=== PATIENT | female | born 1995 | race Caucasian/White ===

== ENCOUNTER 2017-11-15 17:45 | Inpatient (IN) | payer OTHER ==
[2017-11-15] MEDS ORDERED: Betamethasone Soluspan 30 mg/5mL Inj Susp IM SCH (19:00)
[2017-11-15] MEDS ORDERED: Lactated Ringer's 1,000 ML IV SCH (19:00)
[2017-11-15 19:09] LABS: BASO % 0.2 % (0.0-2.0); EOS # 0.1 K/uL (0.0-0.7); EOS % 1.3 % (0.0-4.0); HEMOGLOBIN 13.1 g/dL (11.0-16.0); LYMPH % 27.1 % (20.0-40.0); MEAN CELL VOLUME 92.8 fL (81.0-99.0); MEAN CORPUSCULAR HEMOGLOBIN 32.7 pg (27.0-31.0); MEAN CORPUSCULAR HGB CONC 35.3 g/dL (33.0-37.0); MEAN PLATELET VOLUME 7.9 fL (7.2-11.7); MONO # 0.6 K/uL (0.0-0.8); MONO % 7.9 % (0.0-10.0); NEUT # 4.6 K/uL (1.8-7.0); NEUT % 63.5 % (50.0-75.0); NRBC % 0.1 % (0.0-2.0); RBC 3.99 Mil/uL (3.80-5.20); RED CELL DISTRIBUTION WIDTH 13.3 % (11.5-14.5); WHITE BLOOD COUNT 7.3 K/uL (4.8-10.8)
[2017-11-15 19:18] LABS: SQUAMOUS EPITHIAL 1 /hpf (0-5); URINE AMORPHOUS SEDIMENT FEW /ul (<OCC); URINE BACTERIA RARE (<OCC); URINE BILIRUBIN NEGATIVE (NEGATIVE); URINE BLOOD NEGATIVE (NEGATIVE); URINE CLARITY Hazy (Clear); URINE COLOR Yellow (YELLOW); URINE GLUCOSE (UA) NORMAL (Normal); URINE LEUKOCYTE ESTERASE NEG Leu/uL (Negative); URINE PROTEIN NEGATIVE (NEGATIVE); URINE UROBILINOGEN NORMAL mg/dL (0.2-1.0)
--- NOTE | 2017-11-16 07:41 | OBPN ---
Datetime: 11/16/2017 07:37 IP Progress Impression: Normal progression of labor IP Progress Plan: Continue present management Membranes, Provider: Intact Contraction Comments Provider: irregular FHR - Baseline A Provider: 125 Gestation - Est Wks by US: 35.0 Presentation-Admit: Vertex IP Progress Note Comment: pt admitted yerstda for ptl s/p celestone, on pcn gbs porphylaxis, dneis a ny pain, addivition vb, ctx, +FM VSS VE: 5cm VTX, intact EFM: Cat I TOCO: irregular A/P @ 35 wks GA in labor -r/b/a/i of prematre deliveyr potential [facility] -for [place] #2 -ivf -pain amangment prn FHR Category Provider Fetus A: Category I NICHD Variability Prov Fetus A: Moderate 6-25bpm Dilatation, Provider: 5 Effacement, Provider: 60 Station, Provider: -2 NICHD Decel Fetus A IP Provider: None
--- NOTE | 2017-11-16 19:38 | OBPN ---
Datetime: 11/16/2017 19:34 IP Progress Impression: Normal progression of labor IP Progress Plan: Continue present management Membranes, Provider: Intact FHR - Baseline A Provider: 135 Gestation - Est Wks by US: 35.0 Presentation-Admit: Vertex IP Progress Note Comment: pt seen and examined denies nay pain, ctx, lof, vb, +FM VSS VE: 6cm A/P @ 35 wks GA in labor -s/p [place] #2 -cont toco and efm -pain managment -cont current managment Vital Signs Provider: Reviewed; Within Normal Limits FHR Category Provider Fetus A: Category I NICHD Variability Prov Fetus A: Moderate 6-25bpm Dilatation, Provider: 6 Effacement, Provider: 70 Station, Provider: -2 NICHD Decel Fetus A IP Provider: None
--- NOTE | 2017-11-17 08:53 | OBPN ---
Datetime: 11/17/2017 08:51 IP Progress Impression: Normal progression of labor; Reassuring heart rate IP Progress Plan: Continue present management Membranes, Provider: Intact Contraction Comments Provider: irregular FHR - Baseline A Provider: 125 Gestation - Est Wks by US: 35.1 Presentation-Admit: Vertex IP Progress Note Comment: pt serge and examiend rpeorts crampign that comes and goes, densi any vb, + FM VSS VE: 7cm A/P @ 35.1 wks GA in pretemr laobr cotn current mmant pcn gbs propylis cont current mamagnet Vital Signs Provider: Reviewed; Within Normal Limits FHR Category Provider Fetus A: Category I NICHD Variability Prov Fetus A: Moderate 6-25bpm Dilatation, Provider: 7 Effacement, Provider: 70 Station, Provider: -2 NICHD Decel Fetus A IP Provider: None
[2017-11-17] MEDS ORDERED: Oxytocin 30 UNIT 30 UNITS/500 ML BAG IV SCH (09:00)
[2017-11-17] MEDS ORDERED: Oxytocin 30 UNIT 30 UNITS/500 ML BAG IV ONE (09:30)
--- NOTE | 2017-11-17 11:53 | OBPN ---
Datetime: 11/17/2017 11:49 IP Progress Impression: Normal progression of labor; Reassuring heart rate; Rupture of membran es IP Progress Plan: Continue present management; Augmentation Membranes, Provider: Ruptured Amniotic Fluid Color, Provider: Clear FHR - Baseline A Provider: 135 Gestation - Est Wks by US: 35.1 Presentation-Admit: Vertex IP Progress Note Comment: pt seen and examiend with small spurts of fluid, dnie any vb, ctx, +FM. pt preorts peliv cprsesure VSS VE: Bedside US: TAO 4.2cm, vtx, anterior placenta A/P @ 35 + wks withPLT now prom -s/p [place]estone x 2 -pcn for gbs porphyaixs -cbc -ivf -pitocin augmentaiton FHR Category Provider Fetus A: Category I NICHD Variability Prov Fetus A: Moderate 6-25bpm Dilatation, Provider: 7 Effacement, Provider: 70 Station, Provider: -1 NICHD Decel Fetus A IP Provider: None
[2017-11-17 12:46] LABS: BASO % 0.1 % (0.0-2.0); HEMOGLOBIN 12.7 g/dL (11.0-16.0); LYMPH # 1.3 K/uL (1.0-4.3); LYMPH % 11.9 % (20.0-40.0); MEAN CELL VOLUME 94.1 fL (81.0-99.0); MONO # 0.8 K/uL (0.0-0.8); MONO % 7.8 % (0.0-10.0); NEUT # 8.7 K/uL (1.8-7.0); NEUT % 80.2 % (50.0-75.0); RBC 3.86 Mil/uL (3.80-5.20); RED CELL DISTRIBUTION WIDTH 13.3 % (11.5-14.5); WHITE BLOOD COUNT 10.9 K/uL (4.8-10.8)
--- NOTE | 2017-11-17 17:19 | OBPN ---
Datetime: 11/17/2017 17:15 IP Progress Impression: Normal progression of labor IP Progress Plan: Continue present management Membranes, Provider: Ruptured FHR - Baseline A Provider: 125 Gestation - Est Wks by US: 35.1 Presentation-Admit: Vertex IP Progress Note Comment: pt serge and examiend c/o pressure, dnies vb, +FM VE: 9cm/90/-1 A/P @ 35+ wks in plt con tcurretn managmnet peds aware NICHD Variability Prov Fetus A: Moderate 6-25bpm Dilatation, Provider: 9 Effacement, Provider: 90 Station, Provider: -1 NICHD Decel Fetus A IP Provider: None
[2017-11-17] MEDS ORDERED: Lidocaine Hydrochloride 0 ML INJ ONE (17:27)
[2017-11-17] MEDS ORDERED: Lidocaine 2% MPF (5 ml) Inj ONE ×3 (17:27→17:34)
[2017-11-17] MEDS ORDERED: Oxycodone/Acetaminophen 5/325 mg Tab PO PRN ×2 (18:43)
[2017-11-17] MEDS ORDERED: Benzocaine/Menthol 20%-0.5% Topical Spray (60 ml) TOP PRN (18:43)
--- NOTE | 2017-11-17 18:46 | OBDS ---
DELIVERY PERSONNEL Delivery Doctor: Vicki Suggs MD Directional Bore Operator: Alisa Prabhakar RN MATERNAL INFORMATION Delivery Anesthesia: Local Placenta Cultured: No Maternal Complications: None Provider Comments: pt was fully dilated and pushing. . Atrautmc , sponetous delivery of head in PAMELA postion,nucharl cord x 1, looseened. Aturmatic, sponatnoeus delvery of anterior followed by posterior shoulder followed by delivery of the body. Both oral and nasal passags of the baby were bulb suction ed. Umbilca cord was clmaped and cut. Baby handed to mother on abdmen with dominic vuong. Fundus firm , Cord blood and cord gases collected adn sent x 2. Sponantoeu deliveyr of intact placenta with membr anes. Fundus firm.left perinurteral laceratin reapired with 3-0 chromic after local anestehis lidocai ne. Good hemostaiss, no complcations. LIve female ifnat apgars 9, 9 bulldozer mechanic present for deliveyr weight of 4lb 15 ounces ebl 400ml LABOR SUMMARY EDC: 12/21/2017 00:00 No. Babies in Womb: 1 Attempted: No Labor Anesthesia: None LABOR INFORMATION Onset of Labor: 11/17/2017 12:15 Complete Dilatation: 11/17/2017 18:00 Oxytocin: Augmentation Group B Beta Strep: Not Done Antibiotics # of Doses: 12 Antibiotics Time of Last Dose: 4pm Steroids Given: Full Course MEMBRANES Membranes Rupture Method: Spontaneous Rupture of Membranes: 11/17/2017 11:39 Length of Rupture (hrs): 6.57 Amniotic Fluid Color: Clear Amniotic Fluid Amount: Scant STAGES OF LABOR Stage 1 hrs: 5 Stage 1 min: 45 Stage 2 hrs: 0 Stage 2 min: 13 Stage 3 hrs: 0 Stage 3 min: 5 Total Time in Labor hrs: 6 Total Time in Labor min: 3 VAGINAL DELIVERY Episiotomy: None Laceration Extension: N/A Laceration Type: Periurethral Laceration Repair: Yes Initial Vag Sponge Count: 10 Initial Vag Sharps Count: 1 BABY A INFORMATION Delivery Date/Time: 11/17/2017 18:13 Method of Delivery: Vaginal Born in Route : No : N/A Forceps: N/A Vacuum Extraction: N/A Shoulder Dystocia : No SHOULDER DYSTOCIA BABY A Infant Delivery Date/Time: 11/17/2017 18:13 PRESENTATION/POSITION BABY A Presentation: Cephalic Cephalic Presentation: Vertex Vertex Position: Left Occipital Anterior Breech Presentation: N/A PLACENTA INFORMATION BABY A Placenta Delivery Time : 11/17/2017 18:18 Placenta Method of Delivery: Spontaneous Placenta Status: Delivered SCORES BABY A Heart Rate 1 min: >100 bpm Resp Effort 1 min: Good Cry Reflex Irritability 1 min: Cough or Sneeze or Pulls Away Muscle Tone 1 min: Active Motion Color 1 min: Body [place], Extremities Blue Resuscitation Effort 1 min: Tactile Stimulation SCORE 1 MIN: 9 Heart Rate 5 min: >100 bpm Resp Effort 5 min: Good Cry Reflex Irritability 5 min: Cough or Sneeze or Pulls Away Muscle Tone 5 min: Active Motion Color 5 min: Body [place], Extremities Blue SCORE 5 MIN: 9 INFORMATION BABY A Gestational Age at Delivery: 35.1 Gestational Status: Outcome : Liveborn Infant Condition : Stable Sex: Female IDENTIFICATION/MEDS BABY A ID Band Number: [id number] ID Band Location: Left Leg; Left Arm Sensor Applied: Yes Sensor Number: [id number] Sensor Location : Cord Clamp WEIGHT/LENGTH BABY A Birthweight (gms): 2240 Weight (lb): 4 Weight (oz): 15 Infant Length Inches: 17.00 Length cms: 43.2 CORD INFORMATION BABY A No. Cord Vessels: 3 Nuchal Cord : Around Neck x1, Loose Cord Blood Taken: Yes Infant Suction: Mouth; Nose ASSESSMENT BABY A Physical Findings Other: intermittent sternal retractiosn pulse ox 97, dr landa present for deliver y hr 145, resp 58 Infant Respirations: Sternal Retractions
--- NOTE | 2017-11-18 06:05 | OBDCSUM ---
Datetime: 11/18/2017 06:03 Discharged to, Provider: Home Follow up at, Provider: Dr Suggs Disch Instr Activity: Normal activity Disch Instr Diet: Regular Discharge Instructions, Provider: Routine instructions given Discharge Diagnosis, Provider: Term Delivered Discharge Time: 11/19/2017 06:04 Follow up in weeks, Provider: 6 weeks Disch Referrals: None Contraception discussed, Prov: Yes Disch Activity Restrictions: No sexual activity; Nothing in vagina - [place], tampons, douche Discharge Comment, Provider: dc in am Contraception after Delivery: Not Planning to Use
--- NOTE | 2017-11-18 06:05 | OBPPN ---
Datetime: 11/18/2017 06:03 PP Pain Prov: Within normal limits PP Nausea Prov: Denies PP Flatus Prov: Yes PP BM Prov: No PP Breasts Prov: Normal PP Heart Prov: Normal PP Lungs Prov: Normal PP Abdomen/Uterus Prov: Normal PP Lochia Prov: Normal PP Vulva/Perineum Prov: Normal PP CVA Tenderness Prov: Normal PP Extremities Prov: Normal PP C/S Incision Prov: Not Applicable PP Progress Prov: Normal PP Impression Prov: Normal progression PP Plan Prov: Continue present management PP Progress Note Prov: pt seen and examiend and reprots pain controlled with medicaion. pt dnies any fever, chills, naseu, vomiting, cp, sob, pt ambaitng, voiding, passing flatus, toleratign regalar di et, and breast feeding VSS PE GEN NAD AA Ox 3 BREAST: NT, Non engorged b/l RESP: CTAB?l CVS: +S1/S2, RRR ABD: soft, NT, ND, no gurading no rebound tendneresn, no rigidty FUNDUS: Firm, at leve of umbiucs VE: minimal lochia ,non foul smelling, Laceratoin site non tender EX:T negtaive ian's sign, negtiv calf tendneress A/P s/p PPD #1 -pain manamgnet -am labs -regular diet -encourage ambutaion, breast feeding -routine care IP PP Procedures: None Vital Signs Provider PP: Reviewed; Within Normal Limits
[2017-11-18] MEDS: Multiple Vitamins Tab PO SCH (09:45)
[2017-11-18 12:03] LABS: BASO % 0.2 % (0.0-2.0); EOS % 0.4 % (0.0-4.0); LYMPH # 2.3 K/uL (1.0-4.3); MEAN CELL VOLUME 93.9 fL (81.0-99.0); MEAN CORPUSCULAR HEMOGLOBIN 33.7 pg (27.0-31.0); MEAN CORPUSCULAR HGB CONC 35.8 g/dL (33.0-37.0); MEAN PLATELET VOLUME 8.1 fL (7.2-11.7); MONO # 0.9 K/uL (0.0-0.8); NEUT # 7.7 K/uL (1.8-7.0); NEUT % 70.4 % (50.0-75.0); RED CELL DISTRIBUTION WIDTH 13.4 % (11.5-14.5)
[2017-11-18 12:04] LABS: HEMOGLOBIN 10.1 g/dL (11.0-16.0)
[2017-11-19] MEDS: Multiple Vitamins Tab PO SCH (09:42)
--- NOTE | 2017-11-19 15:19 | OBDCSUM ---
Datetime: 11/19/2017 15:18 Discharged to, Provider: Home Follow up at, Provider: Dr Suggs Disch Instr Activity: Normal activity Disch Instr Diet: Regular Discharge Instructions, Provider: Routine instructions given Discharge Diagnosis, Provider: Labor; Delivery Discharge Time: 11/19/2017 15:18 Follow up in weeks, Provider: 6 weeks Disch Referrals: None Contraception discussed, Prov: Yes Disch Activity Restrictions: No sexual activity; Nothing in vagina - [place], tampons, douche Contraception after Delivery: Not Planning to Use
--- NOTE | 2017-11-19 15:20 | OBPPN ---
Datetime: 11/19/2017 15:17 PP Pain Prov: Within normal limits PP Nausea Prov: Denies PP Flatus Prov: Yes PP BM Prov: No PP Breasts Prov: Normal PP Heart Prov: Normal PP Lungs Prov: Normal PP Abdomen/Uterus Prov: Normal PP Lochia Prov: Normal PP Vulva/Perineum Prov: Normal PP CVA Tenderness Prov: Normal PP Extremities Prov: Normal PP C/S Incision Prov: Not Applicable PP Progress Prov: Normal PP Impression Prov: Normal progression PP Plan Prov: Discharge PP Progress Note Prov: pt seen and examiend and reprots pain controlled with medicaion. pt dnies any fever, chills, naseu, vomiting, cp, sob, pt ambaitng, voiding, passing flatus, toleratign regalar di et, and breast feeding VSS PE GEN NAD AA Ox 3 BREAST: NT, Non engorged b/l RESP: CTAB?l CVS: +S1/S2, RRR ABD: soft, NT, ND, no gurading no rebound tendneresn, no rigidty FUNDUS: Firm, below leve of umbiucs VE: minimal lochia ,non foul smelling, Laceratoin site non tender EX:T negtaive ian's sign, negtiv calf tendneress A/P s/p PPD #2 dc hoem rto 6 week Vital Signs Provider PP: Reviewed; Within Normal Limits
[2017-11-19 20:58] VITALS: BP 124/79; PULSE 100; RESP 20; TEMP 97.5; O2SAT 100
== END 2017-11-19 16:30 | disposition home or self-care (01) | DRG 775 ==
LOC: C.EROB 17:45 → C.4D 11-16 07:42 → C.4M 11-17 20:15
PROVIDERS: ADMIT Obstetrics & Gynecology; ATTEND Obstetrics & Gynecology
PROC: 10E0XZZ Delivery of Products of Conception, External Approach (ICD-10-PCS; principal; 2017-11-17)
DX: O60.14X0 Preterm labor third trimester with preterm delivery third trimester, not applicable or unspecified (principal); O69.1XX0 Labor and delivery complicated by cord around neck, with compression, not applicable or unspecified; O42.013 Preterm premature rupture of membranes, onset of labor within 24 hours of rupture, third trimester; Z3A.35 35 weeks gestation of pregnancy; Z37.0 Single live birth